=== PATIENT | male | born 1950 | race Caucasian/White ===

== ENCOUNTER 2017-12-26 17:54 | Emergency (ER) | payer BC, OTHER ==
[~2017-12-26] VITALS: Ht 170.2 cm; Wt 64.1 kg
[2017-12-26 19:01] LABS: HEMATOCRIT 36.2 % (38.0-50.0); HEMOGLOBIN 12.2 G/DL (12.5-16.6); MCHC 33.7 G/DL (30.0-36.0); MCV 88.9 FL (86-99); PLATELET COUNT 224 K/uL (156-360); RBC DIS.WIDTH-CV 17.8 % (11.8-14.6); RBC DIS.WIDTH-SD 57.8 % (39-53); RED BLOOD COUNT 4.07 M/uL (4.00-5.50); WHITE BLOOD COUNT 6.3 K/uL (4.1-10.2)
[2017-12-26 19:17] LABS: ALBUMIN 3.7 g/dL (3.2-4.8); CHLORIDE 107 mEq/L (99-109); POTASSIUM 4.2 mEq/L (3.7-5.4); SODIUM 144 mEq/L (136-147)
[2017-12-26 19:20] LABS: GLUCOSE 61 mg/dL (70-99); TOTAL PROTEIN 6.6 g/dL (6.4-8.3)
[2017-12-26 19:22] LABS: TOTAL BILIRUBIN 0.4 mg/dL (0.0-1.0)
[2017-12-26 19:23] LABS: ALKALINE PHOSPHATASE 70 IU/L (3-129); SERUM ETHYL ALCOHOL < 10 mg/dL
[2017-12-26 19:24] LABS: CREATININE 0.8 mg/dL (0.6-1.3); GFR ESTIMATE (CALCULATED) > 59 mL/min/ (58.99-99999)
[2017-12-26 19:25] LABS: AST (GOT) 21 IU/L (2-34); UREA NITROGEN (BUN) 14 mg/dL (9-23)
[2017-12-26 19:26] LABS: ALT (GPT) 24 IU/L (3-49)
[2017-12-26 20:11] LABS: TROP-I INTERPRETATION NEGATIVE; TROPONIN-I < 0.01 ng/mL (0.0-0.30)
[2017-12-26 22:42] LABS: AMPHETAMINE PRESUMPTIVE POSITIVE (500 ng/mL); BARBITURATES NEGATIVE (200 ng/mL); BENZODIAZEPINES PRESUMPTIVE POSITIVE (150 ng/mL); BUPRENORPHINE NEGATIVE (10 ng/mL); COCAINE NEGATIVE (150 ng/mL); METHADONE NEGATIVE (200 ng/mL); METHAMPHETAMINE NEGATIVE (500 ng/mL); OPIATES (MORPHINE) NEGATIVE (100 ng/mL); OXYCODONE PRESUMPTIVE POSITIVE (100 ng/mL); PHENCYCLIDINE NEGATIVE (25 ng/mL); PROPOXYPHENE NEGATIVE (300 ng/mL); THC CANNABINOIDS NEGATIVE (50 ng/mL); TRICYCLIC ANTIDEPRESSANTS NEGATIVE (300 ng/mL)
[2017-12-26 23:16] VITALS: BP 148/85
[2017-12-27 03:22] LABS: BENZODIAZEPINES, URINE SCREEN POSITIVE (200 ng/mL)
== END 2017-12-26 23:24 | disposition home or self-care (01) ==
LOC: EME 17:54
PROVIDERS: Emergency Medicine
DX: R55 Syncope and collapse (principal); E16.2 Hypoglycemia, unspecified; T73.0XXA Starvation, initial encounter; X58.XXXA Exposure to other specified factors, initial encounter; F19.10 Other psychoactive substance abuse, uncomplicated; Z72.89 Other problems related to lifestyle; Z59.0 Homelessness; I10 Essential (primary) hypertension; F32.9 Major depressive disorder, single episode, unspecified; F17.200 Nicotine dependence, unspecified, uncomplicated
CPT/HCPCS: 71045; 80053; 82948; 84484; 84999; 85027; 93005; 99281; 99285; G0480; J7030

== ENCOUNTER 2017-12-28 19:43 | Emergency (ER) | payer BC, OTHER ==
[~2017-12-28] VITALS: Ht 170.2 cm; Wt 68.0 kg
[2017-12-28 21:26] LABS: BASOPHIL (%) 1.2 % (0-1); BASOPHIL COUNT 0.1 K/uL (0-0.1); EOSINOPHIL (%) 4.5 % (0-5); EOSINOPHIL COUNT 0.3 K/uL (0-0.3); HEMATOCRIT 33.9 % (38.0-50.0); HEMOGLOBIN 11.3 G/DL (12.5-16.6); IMMATURE GRANULOCYTE (%) 0.3 % (0.0-0.7); LYMPHOCYTE (%) 24.3 % (15-42); LYMPHOCYTE COUNT 1.5 K/uL (1.0-2.8); MCH 29.6 PG (29.0-34.0); MCHC 33.3 G/DL (30.0-36.0); MCV 88.7 FL (86-99); MONOCYTE (%) 11.7 % (3-12); MONOCYTE COUNT 0.7 K/uL (0-0.8); NEUTROPHIL COUNT 3.5 K/uL (1.8-6.4); PLATELET COUNT 233 K/uL (156-360); RBC DIS.WIDTH-CV 17.9 % (11.8-14.6); RBC DIS.WIDTH-SD 57.9 % (39-53); RED BLOOD COUNT 3.82 M/uL (4.00-5.50)
[2017-12-28 21:39] LABS: CHLORIDE 111 mEq/L (99-109)
[2017-12-28 21:40] LABS: POTASSIUM 3.8 mEq/L (3.7-5.4); SODIUM 146 mEq/L (136-147)
[2017-12-28 21:44] LABS: GLUCOSE 97 mg/dL (70-99)
[2017-12-28 21:45] LABS: CREATININE 0.7 mg/dL (0.6-1.3); GFR ESTIMATE (CALCULATED) > 59 mL/min/ (58.99-99999)
[2017-12-28 21:46] LABS: UREA NITROGEN (BUN) 11 mg/dL (9-23)
[2017-12-29 01:06] VITALS: BP 139/69
== END 2017-12-29 01:23 | disposition home or self-care (01) ==
LOC: EME → EDBD 19:43 → EME 12-29 01:23
PROVIDERS: Emergency Medicine
DX: F11.90 Opioid use, unspecified, uncomplicated (principal); R41.82 Altered mental status, unspecified; S00.81XA Abrasion of other part of head, initial encounter; W19.XXXA Unspecified fall, initial encounter; Y92.481 Parking lot as the place of occurrence of the external cause; R94.31 Abnormal electrocardiogram [ECG] [EKG]; F17.200 Nicotine dependence, unspecified, uncomplicated
CPT/HCPCS: 70450; 80048; 82948; 85025; 93005; 99281; 99284